=== PATIENT | female | born 1930 | race Caucasian/White ===

== ENCOUNTER 2017-01-27 14:52 | Observation (INO) | payer MEDICARE, OTHER ==
[~2017-01-27] VITALS: Ht 172.7 cm; Wt 86.8 kg
[2017-01-27] MEDS ORDERED: DONETAB5 PO (15:19)
[2017-01-27] MEDS ORDERED: CALC600T57 PO (15:19)
[2017-01-27] MEDS ORDERED: NAME5TAB13 PO (15:19)
[2017-01-27] MEDS ORDERED: LISI40TAB PO (15:19)
[2017-01-27] MEDS ORDERED: GLYB5TA PO (15:19)
[2017-01-27] MEDS ORDERED: ELIQ5TAB PO ×2 (15:19→20:05)
[2017-01-27] MEDS ORDERED: SOTA80TA2 PO (15:19)
[2017-01-27] MEDS ORDERED: VITA100L PO (15:19)
[2017-01-27] MEDS ORDERED: METF10004 PO (15:19)
[2017-01-27] MEDS ORDERED: SPIR25TA2 PO (15:19)
[2017-01-27] MEDS ORDERED: OMEP40CA2 PO (15:19)
[2017-01-27] MEDS ORDERED: JANU100T PO (15:19)
[2017-01-27] MEDS ORDERED: HYDR-643 PO (15:19)
[2017-01-27] MEDS ORDERED: SENN8.6C PO (15:19)
[2017-01-27] MEDS ORDERED: NS 1,000 ML IV SCH (15:53)
[2017-01-27] MEDS: NITROGLYCERIN 0.4 MG SUBL TABLET SL PRN ×3 (15:57→22:33)
[2017-01-27] MEDS ORDERED: ASPIRIN 81 MG CHEW TABLET PO ONE (16:00)
[2017-01-27 16:30] LABS: ALBUMIN 3.5 GM/DL (3.2-5.2); ALBUMIN/GLOBULIN RATIO 1.21 (1.00-1.93); ALKALINE PHOSPHATASE 59 U/L (45-117); ALT/SGPT 18 U/L (12-78); ANION GAP 6 MEQ/L (8-16); AST/SGOT 7 U/L (15-37); BASO % 0.4 % (0.0-1.0); BILIRUBIN,DIRECT 0.1 MG/DL (0.0-0.2); BILIRUBIN,TOTAL 0.5 MG/DL (0.2-1.0); BLOOD UREA NITROGEN 16 MG/DL (7-18); CALCIUM LEVEL 9.3 MG/DL (8.8-10.2); CARBON DIOXIDE LEVEL 28 MEQ/L (21-32); CHLORIDE LEVEL 105 MEQ/L (98-107); CREATININE FOR GFR 0.86 MG/DL (0.55-1.02); EOS # 0.1 K/mm3 (0.0-0.50); EOS % 1.4 % (0.0-3.0); FREE T4 1.12 NG/DL (0.76-1.46); GLOMERULAR FILTRATION RATE > 60.0 (>32); GLUCOSE, FASTING 146 MG/DL (83-110); INR 1.05; LARGE UNSTAINED CELL # 0.1 K/mm3 (0.0-0.4); LARGE UNSTAINED CELL % 1.2 % (0.0-4.0); LYMPH % 9.7 % (24.0-44.0); MEAN CORPUSCULAR HEMOGLOBIN 30.5 pg (27.0-33.0); MEAN CORPUSCULAR HGB CONC 33.5 g/dl (32.0-36.5); MEAN CORPUSCULAR VOLUME 90.9 fl (80.0-96.0); MONO # 0.5 K/mm3 (0.0-0.8); MONO % 5.5 % (0.0-5.0); NEUTROPHILS # 7.1 K/mm3 (1.8-7.7); NEUTROPHILS % 81.7 % (36.0-66.0); PLATELET COUNT, AUTOMATED 204 k/mm3 (150-450); POTASSIUM SERUM 4.6 MEQ/L (3.5-5.1); RED CELL DISTRIBUTION WIDTH 12.9 % (11.5-14.5); SODIUM LEVEL 139 MEQ/L (136-145); TOTAL PROTEIN 6.4 GM/DL (6.4-8.2); WHITE BLOOD COUNT 8.7 K/mm3 (4.0-10.0)
--- NOTE | 2017-01-27 16:45 | REP ---
CT Head without contrast HISTORY: Headache COMPARISON: None Areas of decreased attenuation are present in the periventricular white matter. This represents small-vessel ischemic disease. There is no intraparenchymal hemorrhage, acute infarct, mass or midline shift. The ventricular system and cortical sulci are dilated consistent with minimal volume loss. There is no extra cerebral collection. There is no fracture. The visualized sinuses are clear. IMPRESSION: 1. Small vessel ischemic disease. 2. Minimal volume loss. Signed by Camden Mackenzie MD 01/27/2017 04:36 P
[2017-01-27] MEDS ORDERED: ISOVUE-370 76% 100ML VIAL (Q9967) As Ordered ONE (16:59)
[2017-01-27 17:09] LABS: MAGNESIUM LEVEL 1.6 MG/DL (1.8-2.4)
--- NOTE | 2017-01-27 17:58 | REP ---
AP PORTABLE CHEST: 01/27/2017 at 04:32 PM. Clinical history: Chest pain. Findings: No prior study. Dual lead pacer over the left upper chest with leads in the right atrium and right ventricle. Lungs are only marginally adequate in the degree of inflation. Some underlying interstitial fibrotic changes are seen. No dense consolidation. There is cardiomegaly with left ventricular configuration, even allowing for the portable technique. The heart appears mildly enlarged. There is some venous hypertension, but no pulmonary edema. Pulmonary arteries are mildly prominent and there is asymmetric prominence of the right compared to left hilum. This could be pulmonary artery, adenopathy or both. Airway is intact. Calcifications of the aorta and mild tortuosity but no aneurysm. It appears normal for age. Bones are demineralized. There is no free air. Impression: 1. Left ventricular configuration and mild cardiomegaly and venous hypertension. No lizzie edema, pleural effusion or dense consolidation. 2. Some underlying interstitial fibrosis, dual lead pacer, prominence of the freeman bilaterally but asymmetrically greater right than left. That right hilar prominence could be related to just the pulmonary artery, adenopathy or both. Signed by Rod Leon MD 01/29/2017 10:49 A
--- NOTE | 2017-01-27 18:23 | REP ---
REASON: Chest pain. COMPARISON: None. CONTRAST: 100 mL Isovue-370. There is excellent visualization of the pulmonary arterial vasculature. There are no focal filling defects present that would be considered consistent with pulmonary emboli. There is mediastinal and right hilar adenopathy. The imaged upper abdomen is within normal limits. The imaged osseous structures are within normal limits for the patient's age. Evaluation of the lung kaiser show significant respiratory motion artifact on every image. In the inferior right middle there is a 6 mm sized pulmonary nodule. IMPRESSION: 1. There is no evidence of a pulmonary embolus. 2. 6 mm sized right middle lobe nodule. According to the revised Fleischner's Society criteria, this represents a category 3 lesion for which a [address] is recommended. 3. Other findings as described above. Signed by Tristan Spain DO 01/27/2017 06:59 P
[2017-01-27] MEDS ORDERED: GLUCOSE 4 GM CHEW TABLET PO PRN (19:15)
[2017-01-27] MEDS ORDERED: DEXTROSE 50% 50 ML SYRINGE IV PRN (19:15)
[2017-01-27] MEDS ORDERED: ONDANSETRON 4MG/2ML VIAL (J2405) IV PRN (19:15)
[2017-01-27] MEDS ORDERED: GLUCAGON FOR INJ 1 MG VIAL (J1610) SC PRN (19:15)
[2017-01-27] MEDS ORDERED: NITROGLYCERIN 0.3 MG SUBL TAB SL PRN (19:15)
[2017-01-27] MEDS ORDERED: GI COCKTAIL 50ML BTL(HYOSCYAMINE/MAALOX/LIDOCAINE VISCOUS)(1:3:1) PO PRN (19:15)
[2017-01-27] MEDS ORDERED: MAG SULF 1GM/100ML (MAG RUN) 1 GM in APPROPRIATE DILUENT 1 EA IV ONE (20:00)
[2017-01-27] MEDS ORDERED: MEMA1TAB2 PO (20:05)
[2017-01-27] MEDS ORDERED: SENN1TAB10 PO (20:05)
[2017-01-27] MEDS ORDERED: OMEP20CA3 PO (20:05)
[2017-01-27] MEDS ORDERED: DONE5TAB17 PO (20:05)
[2017-01-27] MEDS ORDERED: CALC1TAB30 PO (20:05)
[2017-01-27] MEDS ORDERED: VITA-193 PO (20:05)
[2017-01-27] MEDS: HumaLOG INSULIN (NovoLOG) PER UNIT SC SCH ×2 (21:00→22:30)
--- NOTE | 2017-01-27 21:30 | HPE ---
DATE OF ADMISSION: 01/27/2017 INPATIENT HOSPITALIST ATTENDING: Dr. Camden Gaspar. PRIMARY CARE PHYSICIAN: None locally. Patient lives in [place], [place] Primary Care physician in [place]. Patient has a daughter in [place], Clarice Diaz [phone]. CHIEF COMPLAINT: Chest pain and dizziness. HISTORY OF PRESENT ILLNESS: This is an 86-year-old female with prior history of hypertension, diabetes, atrial fibrillation, hypercholesterolemia and dementia with past surgical history significant for left hip replacement, hysterectomy secondary to dysmenorrhea, tonsillectomy, cholecystectomy and appendectomy presents to the emergency room with complains of acute onset of dizziness after having lunch this afternoon. Patient was sitting down at the time as she moved from her chair to eat lunch on [place] [facility]. She also describes chest pressure between her ribs which lasted for about 30-45 minutes and abated without intervention. Patient denies taking any aspirin or nitroglycerine, although she had it at home. She also denies any shortness of breath, diaphoresis, no radiation and no ibuprofen or Tylenol taken for this. No nausea, vomiting or abdominal pain. She denies any changes in vision. She has been in her usual state of health for the past few days and is currently visiting for the Summer from [place], [place] and will stay until the 24 of February. Patient has not had any sick contacts, fevers, chills, changes in appetite, upper or lower extremity weakness. Denies any dyspepsia, prior history of peptic ulcer disease, gastritis, esophagitis, hematemesis, bright red blood per rectum, melena or black tarry stools. Despite history of atrial fibrillation, she denies any palpitations, no lightheadedness but did complain of some dizziness. No new syncopal episode, no loss of consciousness during the dizzy episode. Blood sugar at the time was 146. Four hours later, patient was transported from [facility] to [place] and transported to [facility] Emergency Room. Troponins were found to be negative with EKG showing paced rhythm with chronic left bundle branch block. She denies any sick contacts and has had no cough, fever or chills. PAST MEDICAL HISTORY: Diabetes, hypertension, atrial fibrillation, hypercholesterolemia and dementia. PAST SURGICAL HISTORY: Left hip replacement, hysterectomy, dysmenorrhea, tonsillectomy, cholecystectomy, appendectomy. ALLERGIES: HYDROCODONE, CODEINE, ERYTHROMYCIN, SULFA ANTIBIOTICS causing GI upset and dizziness. 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 No alcohol or cigarette use in the past. Denies any recreational drug use. Health Care Proxy is Clarice Diaz [phone] who lives in [place]. She does not know her code status. FAMILY HISTORY: Non-contributory due to age. REVIEW OF SYSTEMS: 12-point system negative aside from positive findings and history of present illness. PHYSICAL EXAMINATION: Temperature 98, pulse 69 irregular, respiratory rate 18, blood pressure 147/70, 97% pulse ox. Admission blood pressure was 207/94 on arrival to the emergency room. GENERAL: She is awake, alert, and oriented to herself, to place, she is answering questions appropriately. Anicteric sclerae, no jaundice. Pupils equal, round, reactive to light and accommodation. Extraocular muscles are intact following commands. No respiratory distress. No jugular venous distention or thyromegaly. No cervical lymphadenopathy or pharyngeal erythema. Patient has diminished breath sounds but clear to auscultation. No wheezing, rales or rhonchi. Heart S1 , S2, irregularly irregular. Pacemaker noted left anterior chest. Abdomen is soft , non-tender, non-distended. Positive bowel sounds four quadrants. No hepatosplenomegaly. Surgical scar is well healed. Extremities no cyanosis or clubbing. No pitting edema. Skin warm, dry, well perfused. B[place]y in color. EKG paced rhythm, ventricular rate of 71. Left axis deviation left bundle branch block. White count 8.7, hemoglobin 13.5, hematocrit 40.2, platelet count 204, 41% neutrophils, sodium 139, potassium 4.6, chloride 105, bicarbonate 28, BUN 16, creatinine 0.86, glucose 146, calcium 9.3, magnesium 1.6, T-bilirubin 0.5, direct bilirubin 0.1, AST 7, ALT 18, alkaline phosphatase 59, total CK 91, MB fraction 6.5. Troponin less than 0.02. BNP 113, troponin 6.4, albumin 3.5, lipase 133, TSH 0.621, Free T4 1.12. Repeat troponin 0.02. CT of the head due to complaints of dizziness shows small vessel ischemic disease and minimal volume loss. Chest x-ray 01/27/2017 shows a left ventricular configuration, mild cardiomegaly , venous hypertension, no lizzie edema, pleural effusion or dense consolidation. Some underlying interstitial fibrosis, dual lead pacer, prominence of the freeman bilaterally but asymmetric greater right than left, the right hilar prominence could be related to just pulmonary artery adenopathy or both. CT chest shows a 6 mm right middle lobe nodule according to revised Fleischner's Society criteria, this represents a category 3 lesion for which a six month follow up chest CT is recommended. No evidence of pulmonary embolism. There are no filling defects. There is mediastinal and right hilar adenopathy. ASSESSMENT AND PLAN: This is an 86-year-old female with history of hypertension, diabetes, hypercholesterolemia, atrial fibrillation on chronic anticoagulation, dementia, presents to the emergency room with acute onset of dizziness while she was sitting having her lunch, as she moved from her chair to the porch at [facility] with complaints of chest pressure between her ribs that lasted for about 30-45 minutes, resolved without intervention, unchanged by position without accompanying diaphoresis, but not lightheadedness near syncope or shortness of breath. She had a similar episode years ago when she went to the hospital, could not recall the diagnosis. Patient was found to be hypertensive with systolic pressure of 207/94 in the emergency room. Glucose level was 146, troponin was negative. EKG was unremarkable. Patient was chest pain free on arrival. She was given 324 mg of aspirin and nitroglycerine. Hospitalist service was called for admission. Patient will be admitted for observation for evaluation of her chest pain and will be assigned to Dr. Camden Gaspar. 1. Chest pain. Rule out acute coronary syndrome. Patient has significant risk factors for coronary artery disease, having had prior history of hypertension, diabetes, hypercholesterolemia therefore she will be admitted to the telemetry unit. Differential diagnosis also includes atrial fibrillation with RVR, especially with complaints of dizziness, 2D echo in the morning, cycle cardiac markers and EKG, as needed nitroglycerine for ongoing chest pressure. Patient has had adverse effects with codeine and hydrocodone, therefore will not provide morphine. Monitor patient's blood pressure and titrate antihypertensives as needed for better blood pressure control. Differential diagnosis of atypical chest pain with GI cause, can change Prilosec to Protonix, GI cocktail as needed for chest pain. If persistent symptoms, may consider upper GI series to rule out gastric ulcers or peptic ulcer disease. No signs of active GI bleed at this time. 2. Hypertensive urgency. It is unclear whether the patient's chest pain brought on the hypertensive urgency or the hypertensive urgency presented itself as chest pressure and dizziness, therefore patient will be kept on telemetry unit. She will be continued on lisinopril and sotalol, spironolactone for better blood pressure control, titrate medications as needed. Monitor for hypertension. 3. CT of the head shows no acute hemorrhagic CVA in light of chronic anticoagulation with Eliquis. 4. Atrial fibrillation appears to be rate controlled at this time. We will continue home dose of sotalol, anticoagulation with Eliquis, continue telemetry monitoring. 5. Type 2 diabetes on chronic Metformin and glyburide. Continue consistent carbohydrate diet, insulin sliding scale with coverage, fingersticks before food and at bedtime, may resume home dose of Januvia, metformin and glyburide. 6. Dementia. Continue on Namenda. 7. Incidental finding of a 6 mm pulmonary nodule in the right middle lobe. Outpatient follow up with repeat CT chest in six months time. Pt will be assigned to Dr Camden Gaspar at 0700 am 01/28/17. YAIMA
[2017-01-27 22:00] VITALS: BP 190/78
[2017-01-27] MEDS: DONEPEZIL 5 MG TAB PO SCH (22:21)
[2017-01-27] MEDS: SOTALOL HCL 80 MG TAB PO SCH (22:21)
[2017-01-27] MEDS: APIXABAN 5 MG TAB (ELIQUIS) PO SCH (22:21)
[2017-01-27 22:45] VITALS: BP 182/64
[2017-01-27] MEDS ORDERED: hydrALAZINE INJ 20 MG/ML VIAL IV STA (23:42)
[2017-01-27 23:50] VITALS: BP 160/60
[2017-01-28] VITALS (7 sets, daily range): BP systolic 131–178; BP diastolic 58–77
[2017-01-28 05:39] LABS: MEAN CORPUSCULAR HGB CONC 33.2 g/dl (32.0-36.5); MEAN CORPUSCULAR VOLUME 90.5 fl (80.0-96.0); RED CELL DISTRIBUTION WIDTH 12.8 % (11.5-14.5); WHITE BLOOD COUNT 5.8 K/mm3 (4.0-10.0)
[2017-01-28] MEDS ORDERED: hydrALAZINE INJ 20 MG/ML VIAL IV SCH (06:00)
[2017-01-28 06:01] LABS: ALBUMIN 3.1 GM/DL (3.2-5.2); ALBUMIN/GLOBULIN RATIO 1.07 (1.00-1.93); ALT/SGPT 14 U/L (12-78); ANION GAP 7 MEQ/L (8-16); AST/SGOT 7 U/L (15-37); BILIRUBIN,DIRECT 0.2 MG/DL (0.0-0.2); BILIRUBIN,TOTAL 0.7 MG/DL (0.2-1.0); BLOOD UREA NITROGEN 14 MG/DL (7-18); CALCIUM LEVEL 8.7 MG/DL (8.8-10.2); CARBON DIOXIDE LEVEL 26 MEQ/L (21-32); CHLORIDE LEVEL 109 MEQ/L (98-107); CHOLESTEROL LEVEL 158 MG/DL (<200); CREATININE FOR GFR 0.64 MG/DL (0.55-1.02); GLOMERULAR FILTRATION RATE > 60.0 (>32); GLUCOSE, FASTING 137 MG/DL (83-110); MAGNESIUM LEVEL 1.8 MG/DL (1.8-2.4); PHOSPHORUS LEVEL 3.1 MG/DL (2.5-4.9); SODIUM LEVEL 142 MEQ/L (136-145); TRIGLYCERIDES LEVEL 85 MG/DL (<150)
[2017-01-28 06:07] LABS: ALKALINE PHOSPHATASE 44 U/L (45-117)
--- NOTE | 2017-01-28 07:10 | ECGEPIP ---
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
--- NOTE | 2017-01-28 07:10 | ECGEPIP ---
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
[2017-01-28] MEDS ORDERED: glyBURIDE 5 MG TAB PO SCH (07:30)
[2017-01-28] MEDS: metFORMIN (GLUCOPHAGE) 1000 MG TABLET PO SCH ×2 (08:00→18:00)
[2017-01-28] MEDS: SITagliptin 50 MG TAB (JANUVIA) PO SCH (09:00)
[2017-01-28] MEDS: ENOXAPARIN 30 MG/0.3 ML SYR (J1650) SC SCH (09:07)
[2017-01-28] MEDS: APIXABAN 5 MG TAB (ELIQUIS) PO SCH ×2 (09:08→20:12)
[2017-01-28] MEDS: SPIRONOLACTONE 25 MG TAB PO SCH (09:08)
[2017-01-28] MEDS: SOTALOL HCL 80 MG TAB PO SCH ×2 (09:09→20:13)
[2017-01-28] MEDS: ACETAMINOPHEN TAB 650MG DOSE (2X325MG) PO PRN ×2 (09:09→21:31)
[2017-01-28] MEDS: HumaLOG INSULIN (NovoLOG) PER UNIT SC SCH ×5 (09:11→21:00)
[2017-01-28] MEDS: MEMANTINE 5MG TABLET (NAMENDA) PO SCH (09:11)
[2017-01-28] MEDS: PANTOPRAZOLE 40MG TAB (PROTONIX) PO SCH (09:11)
[2017-01-28] MEDS: SENNA 8.6 MG TAB (SENOKOT) PO SCH (09:11)
[2017-01-28] MEDS: LISINOPRIL 40 MG TAB PO SCH (09:14)
--- NOTE | 2017-01-28 11:17 | IPNPDOC ---
Text Note Date of Service The patient was seen on 01/28/17. NOTE OBJECTIVE: This is an 86-year-old female with history of hypertension, diabetes, hypercholesterolemia, atrial fibrillation on chronic anticoagulation, dementia, presents to the emergency room with acute onset of dizziness while she was sitting having her lunch, as she moved from her chair to the porch, with complaints of chest pressure between her ribs that lasted for about 30-45 minutes, resolved without intervention, without accompanying diaphoresis, but not lightheadedness near syncope or shortness of breath. She had a similar episode years ago when she went to the hospital, could not recall the diagnosis. Patient was found to be hypertensive with systolic pressure of 207/94 in the emergency room. Glucose level was 146, troponin was negative. EKG was unremarkable. Patient was chest pain free on arrival. She was given 324 mg of aspirin and nitroglycerin. Today she denies any chest pain or shortness of breath. Complains of slight headache. She denies non-compliance with medications or dietary indiscretion. OBJECTIVE: General: NAD, lying comfortably in bed, elderly HEENT: NC/AT, EOMI Lungs: CTA B/L Heart: +S1S2, RRR Abd: soft, NT, +BS Ext: no edema Plan: 1. 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 Hypertensive urgency - resolved - blood pressures still elevated - discontinue IV medications - will add amlodipine if needed 3. Dizziness - CT of the head shows no acute hemorrhagic CVA - unable to obtain MRI given PPM - continue to monitor on telemetry - PT eval 4. Atrial fibrillation - rate controlled at this time - continue home dose of sotalol, anticoagulation with Eliquis, continue telemetry monitoring. 5. Type 2 diabetes - on chronic Metformin and glyburide - Continue consistent carbohydrate diet 6. Dementia - Continue on Namenda. 7. Incidental 6 mm right middle lobe nodule - Outpatient follow up - repeat CT chest in six months 8 DVT prophylaxis - Eliquis VS,Fishbone, I+O VS, Fishbone, I+O Laboratory Tests 01/27/17 15:25 Red Blood Count 4.43, Mean Corpuscular Volume 90.9, Mean Corpuscular Hemoglobin 30.5, Mean Corpuscular Hemoglobin Concent 33.5, Red Cell Distribution Width 12.9 , Neutrophils (%) (Auto) 81.7 H, Lymphocytes (%) (Auto) 9.7 L, Monocytes (%) ( Auto) 5.5 H, Eosinophils (%) (Auto) 1.4, Basophils (%) (Auto) 0.4, Neutrophils # (Auto) 7.1, Lymphocytes # (Auto) 1.0 L, Monocytes # (Auto) 0.5, Eosinophils # (Auto) 0.1, Basophils # (Auto) 0.0 01/28/17 05:11 Red Blood Count 4.27, Mean Corpuscular Volume 90.5, Mean Corpuscular Hemoglobin 30.0, Mean Corpuscular Hemoglobin Concent 33.2, Red Cell Distribution Width 12.8 Vital Signs Date Time Temp Pulse Resp B/P (MAP) Pulse Ox O2 Delivery O2 Flow Rate FiO2 01/28/17 09:09 71 150/67 01/28/17 07:34 98.3 19 96 Room Air I&O- Last 24 Hours up to 6 AM 01/28/17 06:00 Intake Total 200 ml Output Total 650 ml Balance -450 ml RADHA JUÁREZ MD Jan 28, 2017 11:16
--- NOTE | 2017-01-28 14:40 | REP ---
CAROTID ULTRASOUND: Real-time ultrasound evaluation and duplex Doppler interrogation of the extracranial carotid vasculature is performed. There is mild plaquing and narrowing in both carotid bulbs extending into the internal and external carotid arteries. Luminal narrowing is less than 50%. There is no evidence of hemodynamically significant stenosis of either internal carotid artery. Normal flow velocities are seen. The right vertebral artery demonstrate normal direction of flow. The left vertebral artery is not visualized. RIGHT LEFT Peak systolic velocity ICA 68.6 cm/s 69 cm/s End diastolic velocity ICA 17.5 cm/s 15 cm/s Peak systolic velocity CCA 70.6 cm/s 64.5 cm/s Peak systolic velocity ECA 89.1 cm/s 79.7 cm/s ICA/CCA ratio 0.97 1.07 IMPRESSION: Bilateral luminal narrowing of the internal carotid arteries less than 50%. No evidence of hemodynamically significant stenosis. Signed by Maxim Madden MD 01/28/2017 02:32 P
[2017-01-28] MEDS ORDERED: ALPRAZolam 0.25 MG TAB PO PRN (19:15)
[2017-01-28] MEDS: DONEPEZIL 5 MG TAB PO SCH (20:12)
[2017-01-28] MEDS ORDERED: MOM 30ML SUSPENSION UDC PO PRN (20:30)
--- NOTE | 2017-01-28 21:39 | ECGEPIP ---
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
--- NOTE | 2017-01-28 21:41 | ECGEPIP ---
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
[2017-01-29 04:00] VITALS: BP 127/76
[2017-01-29 05:38] LABS: MEAN CORPUSCULAR HEMOGLOBIN 30.6 pg (27.0-33.0); MEAN CORPUSCULAR HGB CONC 33.5 g/dl (32.0-36.5); MEAN CORPUSCULAR VOLUME 91.2 fl (80.0-96.0); WHITE BLOOD COUNT 5.8 K/mm3 (4.0-10.0)
[2017-01-29 05:49] LABS: ANION GAP 8 MEQ/L (8-16); BLOOD UREA NITROGEN 13 MG/DL (7-18); CALCIUM LEVEL 8.6 MG/DL (8.8-10.2); CARBON DIOXIDE LEVEL 27 MEQ/L (21-32); CHLORIDE LEVEL 109 MEQ/L (98-107); CREATININE FOR GFR 0.64 MG/DL (0.55-1.02); GLOMERULAR FILTRATION RATE > 60.0 (>32); GLUCOSE, FASTING 165 MG/DL (83-110); PHOSPHORUS LEVEL 3.1 MG/DL (2.5-4.9); SODIUM LEVEL 144 MEQ/L (136-145)
[2017-01-29] MEDS ORDERED: SLF 3 ML SYR IV SCH (06:00)
[2017-01-29 08:00] VITALS: BP 140/72
[2017-01-29] MEDS: metFORMIN (GLUCOPHAGE) 1000 MG TABLET PO SCH (08:00)
[2017-01-29] MEDS ORDERED: SLF 3 ML SYR IV PRN (08:30)
[2017-01-29] MEDS: SITagliptin 50 MG TAB (JANUVIA) PO SCH (08:42)
[2017-01-29] MEDS: ENOXAPARIN 30 MG/0.3 ML SYR (J1650) SC SCH (08:43)
[2017-01-29] MEDS: APIXABAN 5 MG TAB (ELIQUIS) PO SCH (08:53)
[2017-01-29] MEDS: HumaLOG INSULIN (NovoLOG) PER UNIT SC SCH (08:53)
[2017-01-29 08:54] VITALS: BP 140/72
[2017-01-29] MEDS: LISINOPRIL 40 MG TAB PO SCH (08:54)
[2017-01-29] MEDS: SENNA 8.6 MG TAB (SENOKOT) PO SCH (08:54)
[2017-01-29] MEDS: SOTALOL HCL 80 MG TAB PO SCH (08:54)
[2017-01-29] MEDS: PANTOPRAZOLE 40MG TAB (PROTONIX) PO SCH (08:54)
[2017-01-29] MEDS: SPIRONOLACTONE 25 MG TAB PO SCH (08:55)
[2017-01-29] MEDS: MEMANTINE 5MG TABLET (NAMENDA) PO SCH (08:56)
--- NOTE | 2017-01-29 12:15 | DS.PDOC ---
Discharge Summary General Date of Admission Jan 27, 2017 at 19:09 Date of Discharge 01/29/17 Discharge Summary DISCHARGE DIAGNOSES: 1. chest pain - ruled out acute coronary syndrome 2. diabetes 3. hypertension 4. afib 5. hypercholesterolemia 6. dementia 7. s/p PPM COMPLICATIONS/CHIEF COMPLAINT: Chest Pain. HOSPITAL COURSE: 86 yo female presented for sudden onset of dizziness, chest pressure. Patient states has had similar episodes in the past, that have been worked up as inpatient, but does not recall diagnosis. Admitted for further evaluation. Telemetry monitoring unremarkable. Cardiac markers negative. Labs WNL. Seen by PT and cleared for discharge. Hospital course otherwise unremarkable. DISCHARGE MEDICATIONS: Please see below. ALLERGIES: Please see below. PHYSICAL EXAMINATION ON DISCHARGE: VITAL SIGNS: Please see below. GENERAL: NAD, elderly, lying comfortably in bed HEENT: NC/AT, EOMI, PERRL NECK: supple CARDIOVASCULAR EXAMINATION: +S1S2, RRR RESPIRATORY EXAMINATION: CTA B/L ABDOMINAL EXAMINATION: soft, NT, +BS EXTREMITIES: no edema SKIN: no rashes NEUROLOGICAL EXAMINATION: no gross focal deficits PSYCHIATRIC EXAMINATION: AAOx3 ACTIVITY: [As tolerated]. DIET: 2 gram sodium, carb consistent DISPOSITION: 01 Home, Self-Care. DISCHARGE INSTRUCTIONS: 1. Follow up PCP on return home. 2. Return to ER if symptoms persist. DISCHARGE CONDITION: [Stable]. TIME SPENT ON DISCHARGE: Greater than 30 minutes. Vital Signs/I&Os Vital Signs Date Time Temp Pulse Resp B/P (MAP) Pulse Ox O2 Delivery O2 Flow Rate FiO2 01/29/17 08:54 69 140/72 01/29/17 08:00 97.7 17 96 Room Air I&O- Last 24 Hours up to 6 AM 01/29/17 06:00 Intake Total 1500 ml Output Total 800 ml Balance 700 ml Laboratory Data Labs 24H Laboratory Tests 2 01/28/17 17:23: Bedside Glucose (Misc Panel) 255H 01/28/17 17:56: Total Creatine Kinase 87, Creatine Kinase MB 3.7H, Creatine Kinase MB Relative Index 4.25H, Troponin I < 0.02 01/28/17 18:24: Bedside Glucose (Misc Panel) 227H 01/28/17 19:49: Bedside Glucose (Misc Panel) 130H 01/28/17 21:32: Bedside Glucose (Misc Panel) 107 01/29/17 05:09: Blood Urea Nitrogen 13, Creatinine 0.64, Sodium Level 144, Potassium Level 4.0, Chloride Level 109H, Carbon Dioxide Level 27, Anion Gap 8, Glomerular Filtration Rate > 60.0, Calcium Level 8.6L, Phosphorus Level 3.1, Albumin 3.0L CBC/BMP Laboratory Tests 01/29/17 05:09 Red Blood Count 4.06, Mean Corpuscular Volume 91.2, Mean Corpuscular Hemoglobin 30.6, Mean Corpuscular Hemoglobin Concent 33.5, Red Cell Distribution Width 13.0 , Anion Gap 8 FSBS Laboratory Tests Test 01/28/17 17:23 01/28/17 18:24 01/28/17 19:49 01/28/17 21:32 Range/Units Bedside Glucose (Misc Panel) 255 227 130 107 83-110 MG/DL Discharge Medications Scheduled (Sotalol HCl) 80 Mg Tab, 80 MG PO BID, (Reported) (Calcium 500+D 500-200 mg-Unit) 1 Tab Tab, 1 TAB PO BID, (Reported) Apixaban Base (Eliquis) 5 Mg Tab, 5 MG PO BID, (Reported) Cyanocobalamin (Vitamin B-12) 500 Mcg Tab, 500 MCG PO BID, (Reported) Donepezil Hydrochloride (Donepezil HCl) 5 Mg Tab, 5 MG PO QHS, (Reported) Glyburide (Glyburide) 5 Mg Tab, 10 MG PO BID, (Reported) Lisinopril (Lisinopril) 40 Mg Tab, 40 MG PO DAILY, (Reported) Memantine Hydrochloride (Memantine HCl) 10 Mg Tab, 10 MG PO DAILY, (Reported) Metformin Hydrochloride (Metformin HCl) 1,000 Mg Tab, 1,000 MG PO BID, (Reported ) Omeprazole (Omeprazole) 20 Mg Cap, 20 MG PO DAILY, (Reported) Sitagliptin Phosphate (Januvia) 100 Mg Tab, 100 MG PO DAILY, (Reported) Spironolactone (Spironolactone) 25 Mg Tab, 25 MG PO DAILY, (Reported) Scheduled PRN Senna (Senna Lax) 8.6 Mg Tab, 1 TAB PO DAILY PRN for CONSTIPATION, (Reported) Allergies Coded Allergies: Codeine (Verified Allergy, Unknown, 01/27/17) Erythromycin (Verified Allergy, Unknown, 01/27/17) Hydrocodone (Verified Allergy, Unknown, 01/27/17) Sulfa Antibiotics (Verified Allergy, Unknown, 01/27/17) RADHA JUÁREZ MD Jan 29, 2017 12:15
== END 2017-01-29 10:40 | disposition home or self-care (01) ==
LOC: M ED 14:52 → M ED INP 19:09 → M PCU 22:01
PROVIDERS: ADMIT General Practice; ATTEND Internal Medicine
DX: R07.89 Other chest pain (principal); I16.0 Hypertensive urgency; E11.9 Type 2 diabetes mellitus without complications; I48.91 Unspecified atrial fibrillation; I10 Essential (primary) hypertension; E78.00 Pure hypercholesterolemia, unspecified; F03.90 Unspecified dementia, unspecified severity, without behavioral disturbance, psychotic disturbance, mood disturbance, and anxiety; R91.1 Solitary pulmonary nodule; Z88.5 Allergy status to narcotic agent; Z88.8 Allergy status to other drugs, medicaments and biological substances; Z79.899 Other long term (current) drug therapy; R06.02 Shortness of breath
CPT/HCPCS: 36415; 70450; 71010; 71275; 80048; 80061; 80069; 80076; 82550; 82553; 83036; 83690; 83735; 83880; 84439; 84443; 84484; 85025; 85027; 85610; 85730; 93005; 93041; 93880; 94760; 96361; 96374; 96376; 97161; 99285; G0378; G8978; G8979; G8980; J1650; J3475; Q9967